=== PATIENT | female | born 1985 | race Caucasian/White ===

== ENCOUNTER 2016-08-02 00:26 | Inpatient (IN) | payer OTHER ==
[2016-08-02 08:33] LABS: ROM Internal QC QC Line Present
[2016-08-02] MEDS ORDERED: Oxytocin in LR* 20 UNITS/1,000 ML BAG IVPB SCH (12:00)
[2016-08-02 14:06] LABS: Hematocrit 37 % (35-47); Hemoglobin 12.5 g/dl (12.0-16.0); Mean Corpuscular HGB Conc 34 g/dl (31-36); Mean Corpuscular Hemoglobin 30 pg (27-31); Mean Corpuscular Volume 90 fL (80-97); Mean Platelet Volume 9 um3 (7.4-10.4); Red Blood Count 4.11 10^6/ul (4.0-5.4); Red Cell Distribution Width 14 % (10.5-15); White Blood Count 11.9 10^3/ul (3.5-10.8)
[2016-08-03] MEDS ORDERED: Promethazine INJ(RESTRICTED)* 25 MG/ML 1 ML VIAL IV ONE (02:22)
[2016-08-03] MEDS ORDERED: Nalbuphine* 20 MG/ML 1 ML VIAL IV ONE (02:22)
[2016-08-03] MEDS ORDERED: Dibucaine 1% 28.35 GM TUBE PR PRN (09:43)
[2016-08-03] MEDS ORDERED: Acetaminophen TAB* 325 MG PO PRN (09:43)
[2016-08-03] MEDS ORDERED: Witch Hazel PAD* JAR TOPICAL PRN (09:43)
[2016-08-03] MEDS ORDERED: Glycerin ADULT SUPP PR PRN (09:43)
[2016-08-03] MEDS ORDERED: Oxytocin in LR* 20 UNITS/1,000 ML BAG IVPB SCH (10:00)
[2016-08-03] MEDS ORDERED: Simethicone CHEW TAB* 80 MG PO SCH (12:30)
[2016-08-03] MEDS: Docusate CAP* 100 MG PO SCH ×2 (13:59→20:46)
[2016-08-03] MEDS ORDERED: Measles, Mumps,Rubella VACC* 0.5 ML/VIAL ONE (19:23)
[2016-08-03] MEDS: Ibuprofen TAB* 600 MG PO PRN (20:46)
[2016-08-04] MEDS: Docusate CAP* 100 MG PO SCH ×3 (08:38→19:39)
[2016-08-04] MEDS: Ibuprofen TAB* 600 MG PO PRN ×2 (08:42→19:38)
[2016-08-04] MEDS ORDERED: Measles, Mumps,Rubella VACC* 0.5 ML/VIAL SUBCUT ONE (09:00)
[2016-08-04] MEDS ORDERED: Ferrous Gluconate TAB* 324 MG TAB PO SCH (09:00)
[2016-08-04 09:50] LABS: Add Diff/Slide Review? Slide Review Added; Comments Flag Yes; Hematocrit 33 % (35-47); Mean Corpuscular HGB Conc 34 g/dl (31-36); Mean Corpuscular Hemoglobin 30 pg (27-31); Mean Corpuscular Volume 91 fL (80-97); Mean Platelet Volume 9 um3 (7.4-10.4); Red Blood Count 3.62 10^6/ul (4.0-5.4); Red Cell Distribution Width 14 % (10.5-15); White Blood Count 22.4 10^3/ul (3.5-10.8)
[2016-08-05 08:01] VITALS: BP 111/76
[2016-08-05] MEDS: Docusate CAP* 100 MG PO SCH (08:57)
== END 2016-08-05 11:26 | disposition home or self-care (01) | DRG 560 ==
LOC: MCHOBOUT 00:26 → MCHOB 01:15
PROVIDERS: ADMIT Midwife; ATTEND Midwife
PROC: 10E0XZZ Delivery of Products of Conception, External Approach (ICD-10-PCS; principal; 2016-08-03)
PROC: 0HQ9XZZ Repair Perineum Skin, External Approach (ICD-10-PCS; 2016-08-03)
PROC: 4A1HXCZ Monitoring of Products of Conception, Cardiac Rate, External Approach (ICD-10-PCS; 2016-08-03)
DX: O42.02 Full-term premature rupture of membranes, onset of labor within 24 hours of rupture (principal); O66.0 Obstructed labor due to shoulder dystocia; O69.81X0 Labor and delivery complicated by cord around neck, without compression, not applicable or unspecified; O70.0 First degree perineal laceration during delivery; Z3A.39 39 weeks gestation of pregnancy; Z37.0 Single live birth
CPT/HCPCS: 36415; 84112; 85025; 86850; 86900; 86901; 90707; A9270-GY; J2300; J2550